=== PATIENT | female | born 1980 | race Caucasian/White ===

== ENCOUNTER 2019-07-21 11:51 | Emergency (ER) | payer MEDICAID ==
[~2019-07-21] VITALS: Ht 157.5 cm; Wt 66.0 kg
[2019-07-21 13:07] VITALS: BP 136/87
--- NOTE | 2019-07-21 14:15 | NUR ---
PT TO CHAIR C
--- NOTE | 2019-07-21 14:20 | NUR ---
DR HAWTHORNE AT CHAIR
[2019-07-21] MEDS ORDERED: IBUPROFEN CHILDRENS 100 MG/5 ML UDC PO ONE (14:25)
[2019-07-21] MEDS ORDERED: DEXAMETHASONE 10 MG/ML VIAL IM ONE (14:25)
--- NOTE | 2019-07-21 14:30 | NUR ---
STREP SWAB COLLECTED
--- NOTE | 2019-07-21 14:39 | NUR ---
MEDICATIONS ADMINISTERED
--- NOTE | 2019-07-21 14:47 | NUR ---
C/O BILTERAL EAR PAIN, SORE THROAT, BODY ACHES, FEVER X 2 DAYS. PAIN 7/10. PT AFEBRILE UPON TRIAGE. DENIES COUGH, CP, SOB, OR N/V/D. LUNGS CLEAR BILATERALLY. PT REPORTS NOT MEDICATING FOR PAIN. VS STABLE, PT ALERT AND AWAKE, AMBULATORY.
--- NOTE | 2019-07-21 14:52 | NUR ---
NADR, PAIN 11/30
--- NOTE | 2019-07-21 16:05 | NUR ---
STREP A POSITIVE, REPORTED TO DR HAWTHORNE
[2019-07-21 16:18] VITALS: BP 128/85
--- NOTE | 2019-07-21 16:18 | NUR ---
Patient discharged with v/s stable. Written and verbal after care instructions given and explained. Patient alert, oriented and verbalized understanding of instructions. Ambulatory with steady gait. All questions addressed prior to discharge. ID band removed. Patient advised to follow up with PMD. Rx of PENICILLIN, NORCO given. Patient educated on indication of medication including possible reaction and side effects. Opportunity to ask questions provided and answered. PT INSTRUCTED TO NOT DRIVE AFTER TAKING NORCO IT MAY CAUSE DROWSINESS
--- NOTE | 2019-07-21 16:19 | NUR ---
PAIN 310, PT STATES RELIEF AFTER MEDICTIONS
== END 2019-07-21 16:18 | disposition home or self-care (01) ==
LOC: MED 11:51
DX: J02.0 Streptococcal pharyngitis (principal); F17.210 Nicotine dependence, cigarettes, uncomplicated; Z98.890 Other specified postprocedural states
CPT/HCPCS: 87081; 96372; 99283; J1100

== ENCOUNTER 2020-11-05 22:39 | Emergency (ER) | payer MEDICAID ==
[~2020-11-05] VITALS: Ht 160 cm; Wt 78.5 kg
[2020-11-05 22:44] VITALS: BP 139/100
[2020-11-05 23:05] VITALS: BP 139/100
[2020-11-06] MEDS ORDERED: PRED20TA6 PO (06:37)
[2020-11-06] MEDS ORDERED: ALBU0.0912 IH (06:37)
== END 2020-11-05 23:05 | disposition left against medical advice (07) ==
LOC: MED 22:39
DX: R05 Cough (principal); Z53.21 Procedure and treatment not carried out due to patient leaving prior to being seen by health care provider

== ENCOUNTER 2020-11-06 06:18 | Emergency (ER) | payer MEDICAID ==
[~2020-11-06] VITALS: Ht 162.6 cm; Wt 78.0 kg
[2020-11-06 06:21] VITALS: BP 152/109
--- NOTE | 2020-11-06 06:23 | NUR ---
To ED bed 09
--- NOTE | 2020-11-06 06:27 | NUR ---
Dr. Paez examining patient.
--- NOTE | 2020-11-06 06:30 | NUR ---
PATIENT PRESENTS TO ED WITH CHIEF COMPLAINT OF COUGH AND BILATERAL FOREARM PAIN. SKIN IS PINK/WARM/DRY; AAOX4 WITH EVEN AND STEADY GAIT; PT DENIES ANY FEVER, CP, SOB, OR COUGH AT THIS TIME; PATIENT STATES PAIN OF 8/10 AT THIS TIME; VSS; PATIENT POSITIONED FOR COMFORT; HOB ELEVATED; BEDRAILS UP X2; BED DOWN. ER MD MADE AWARE OF PT STATUS. PMH: 6 C-SECTIONS, GALLBLADDER REMOVED ALLERGIES: NKA
[2020-11-06] MEDS ORDERED: guaiFENesin/CODEINE 100/10MG 5 ML UDC PO ONE (06:35)
[2020-11-06] MEDS ORDERED: IBUPROFEN 800 MG TAB PO ONE (06:35)
[2020-11-06] MEDS ORDERED: ALBU0.0912 IH (06:37)
[2020-11-06] MEDS ORDERED: PRED20TA6 PO (06:37)
--- NOTE | 2020-11-06 06:39 | NUR ---
SPLINT PUT ON BILATERAL FOREARMS.
[2020-11-06 06:46] VITALS: BP 152/109
--- NOTE | 2020-11-06 06:46 | NUR ---
Patient discharged with v/s stable. Written and verbal after care instructions given and explained. Patient alert, oriented and verbalized understanding of instructions. Ambulatory with steady gait. All questions addressed prior to discharge. ID band removed. Patient advised to follow up with PMD. Rx of ALBUTEROL SULFATE AND PREDNISONE given. Patient educated on indication of medication including possible reaction and side effects. Opportunity to ask questions provided and answered.
== END 2020-11-06 06:46 | disposition home or self-care (01) ==
LOC: MED 06:18
DX: M25.531 Pain in right wrist (principal); M25.532 Pain in left wrist; J20.9 Acute bronchitis, unspecified; Z79.899 Other long term (current) drug therapy
CPT/HCPCS: 99283

== ENCOUNTER 2021-02-08 22:16 | Emergency (ER) | payer MEDICAID ==
[~2021-02-08] VITALS: Ht 162.6 cm; Wt 68.0 kg
[~2021-02-08 22:16] MED LIST: ALBU0.0912 IH; PRED20TA6 PO
[2021-02-08 22:18] VITALS: BP 155/98
--- NOTE | 2021-02-08 22:20 | NUR ---
TO LOBBY A/W BED AMBULATORY
--- NOTE | 2021-02-08 23:00 | NUR ---
TO BED AMBULATORY
[2021-02-08] MEDS ORDERED: ACETAMINOPHEN EXTRA STRENGTH 500 MG TAB PO ONE (23:20)
--- NOTE | 2021-02-08 23:30 | NUR ---
RECEIVED IN BED 9 WITH C/O RIGHT SIDED HEADACHE. HAND NERVE SPECIALIST STRONG AND EQUAL, ANNIE. IS AWAKE AND ALERT, AMBULATES WITH STEADY GAIT
[2021-02-08] MEDS ORDERED: IBUP-2218 PO (23:34)
--- NOTE | 2021-02-09 00:10 | NUR ---
Patient discharged with v/s stable. Written and verbal after care instructions given and explained. Patient verbalized understanding. Ambulatory with steady gait. All questions addressed prior to discharge. Advised to follow up with PMD.
== END 2021-02-09 00:10 | disposition home or self-care (01) ==
LOC: MED 22:16
DX: G43.909 Migraine, unspecified, not intractable, without status migrainosus (principal); M54.2 Cervicalgia; F17.210 Nicotine dependence, cigarettes, uncomplicated; Z98.890 Other specified postprocedural states; Z79.1 Long term (current) use of non-steroidal anti-inflammatories (NSAID); Z79.899 Other long term (current) drug therapy; Z79.51 Long term (current) use of inhaled steroids
CPT/HCPCS: 72050; 99283

== ENCOUNTER 2021-02-15 10:34 | Emergency (ER) | payer MEDICAID ==
[~2021-02-15] VITALS: Ht 162.6 cm; Wt 68.0 kg
[~2021-02-15 10:34] MED LIST changes: +IBUP-2218 PO
[2021-02-15 10:40] VITALS: BP 163/132
--- NOTE | 2021-02-15 10:55 | NUR ---
PATIENT PRESENTS TO ED WITH RIGHT SIDED HEAD PAIN . PT STATES PAIN HAS BEEN ONGOING FOR ONE WEEK . DENIES V/D; SKIN IS PINK/WARM/DRY; AAOX4 WITH EVEN AND STEADY GAIT; LUNGS CLEAR BL; HR EVEN AND REGULAR; PT DENIES ANY FEVER, CP, SOB, OR COUGH AT THIS TIME; PATIENT STATES PAIN OF 8/10 AT THIS TIME; VSS; PATIENT POSITIONED FOR COMFORT; HOB ELEVATED; BEDRAILS UP X2; BED DOWN. ER MD MADE AWARE OF PT STATUS.
[2021-02-15] MEDS: KETOROLAC 60 MG/2 ML VIAL IM ONE (11:08)
[2021-02-15] MEDS ORDERED: CIPR500T4 PO (11:13)
[2021-02-15] MEDS ORDERED: ACET-8386 PO (11:13)
--- NOTE | 2021-02-15 11:58 | NUR ---
PATIENT STATES THAT SHE IS FEELING SLIGHTLY BETTER, PAIN IS 3/10. WOULD LIKE TO LAY IN THE BED A LITTLE WHILE LONGER.
[2021-02-15 12:16] VITALS: BP 163/132
--- NOTE | 2021-02-15 12:17 | NUR ---
Patient discharged with v/s stable. Written and verbal after care instructions given and explained. Patient alert, oriented and verbalized understanding of instructions. Ambulatory with steady gait. All questions addressed prior to discharge. ID band removed. Patient advised to follow up with PMD. Rx of NORCO, CIPRO given. Patient educated on indication of medication including possible reaction and side effects. Opportunity to ask questions provided and answered.
== END 2021-02-15 12:17 | disposition home or self-care (01) ==
LOC: MED 10:34
DX: R51.9 Headache, unspecified (principal); N39.0 Urinary tract infection, site not specified; F17.210 Nicotine dependence, cigarettes, uncomplicated
CPT/HCPCS: 81002; 81025; 87086; 96372; 99283; J1885

== ENCOUNTER 2021-02-17 20:15 | Emergency (ER) | payer MEDICAID ==
[~2021-02-17] VITALS: Ht 162.6 cm; Wt 68.0 kg
[~2021-02-17 20:15] MED LIST changes: +ACET-8386 PO; +CIPR500T4 PO
[2021-02-17 20:30] VITALS: BP 125/85
--- NOTE | 2021-02-17 20:30 | NUR ---
TO BED AMBULATORY
--- NOTE | 2021-02-17 21:19 | NUR ---
40/F FROM TRIAGE WITH A C/O HEAD/NECK PAIN PT REPORTS SIMILAR FEELING OVER THE LAST WEEK AND SEEN AND D/C IN ED YESTERDAY. DENIES INJURY/TRAUMA. ALERT TO NAME BIRTHDAY PLACE AND EVENT.
[2021-02-17] MEDS ORDERED: KETOROLAC 15 MG/ML VIAL IVP ONE (21:20)
[2021-02-17] MEDS ORDERED: BUPIVACAINE-MPF/EPI 0.25% 30 ML VIAL INJ ONE (21:20)
[2021-02-17] MEDS ORDERED: METOCLOPRAMIDE 10 MG/2 ML INJ VIAL IVP ONE (21:20)
--- NOTE | 2021-02-17 22:21 | NUR ---
Patient discharged with v/s stable. Written and verbal after care instructions ABOUT MIGRAINE HEADACHE given and explained. Patient verbalized understanding. Ambulatory with steady gait. All questions addressed prior to discharge. Advised to follow up with PMD.
== END 2021-02-17 22:21 | disposition home or self-care (01) ==
LOC: MED 20:15
DX: G43.909 Migraine, unspecified, not intractable, without status migrainosus (principal); F17.210 Nicotine dependence, cigarettes, uncomplicated; Z90.49 Acquired absence of other specified parts of digestive tract; Z90.710 Acquired absence of both cervix and uterus; Z98.890 Other specified postprocedural states; Z79.891 Long term (current) use of opiate analgesic; Z79.2 Long term (current) use of antibiotics; Z79.51 Long term (current) use of inhaled steroids; Z79.1 Long term (current) use of non-steroidal anti-inflammatories (NSAID); Z79.899 Other long term (current) drug therapy; Z71.6 Tobacco abuse counseling
CPT/HCPCS: 96374; 96375; 99284; J1885; J2765; J3490

== ENCOUNTER 2022-05-01 07:50 | Emergency (ER) | payer MEDICAID ==
[~2022-05-01] VITALS: Ht 162.6 cm; Wt 70.5 kg
[2022-05-01 07:53] VITALS: BP 156/82
--- NOTE | 2022-05-01 08:05 | NUR ---
41/F WALKED IN C/O COUGH, HEADACHE, AND BODYACHE ONSET 2 DAYS. PT ALSO C/O LOW BACK PAIN AND STATES NO BM FOR 2 DAYS. AFEBRILE AT TRIAGE. URINE COLLECTED. COVID AND FLU SWAB COLLECTED AND SENT TO LAB. AAO4, AMBULATORY, VITALS STABLE, NO ACUTE DISTRESS, ON ROOM AIR PMH: MIGRAINE
[2022-05-01] MEDS ORDERED: NACL 0.9% 1,000 ML IV ONE (08:20)
[2022-05-01] MEDS ORDERED: diphenhydrAMINE 50 MG/ML VIAL IVP ONE (08:20)
[2022-05-01] MEDS ORDERED: KETOROLAC 30 MG/ML VIAL IVP ONE (08:20)
[2022-05-01] MEDS ORDERED: ONDANSETRON 4 MG/2 ML VIAL IVP ONE (08:20)
[2022-05-01 08:46] LABS: BASOPHILS % (AUTO) 0.7 % (0.0-2.0); EOSINOPHILS % (AUTO) 0.5 % (0.0-4.0); HEMATOCRIT 40.7 % (36-48); LYMPHOCYTES # (AUTO) 0.9 K/uL (2.5-16.5); LYMPHOCYTES % (AUTO) 15.8 % (20.5-51.1); MEAN CORPUSCULAR HEMOGLOBIN 31 pg (27-31); MEAN CORPUSCULAR HGB CONC 34 g/dL (33-37); MEAN CORPUSCULAR VOLUME 89.4 fL (80-94); MONOCYTES % (AUTO) 17.9 % (1.7-9.3); NEUTROPHILS # (AUTO) 3.8 K/uL (1.8-7.7); NEUTROPHILS % (AUTO) 65.1 % (42.2-75.2); PLATELET COUNT (AUTO) 242 K/uL (140-450); RED BLOOD CELL COUNT(AUTO) 4.55 MIL/uL (4.20-5.40); RED CELL DISTRIBUTION WIDTH 13.7 % (11.6-13.7); WHITE BLOOD COUNT (AUTO) 5.8 K/uL (4.8-10.8)
[2022-05-01 08:55] LABS: BILIRUBIN,URINE NEGATIVE (NEGATIVE); BLOOD, URINE 1+ (NEGATIVE); COLOR,URINE YELLOW (YELLOW); LEUKOCYTE ESTERASE ,URINE TRACE (NEGATIVE); NITRITE, URINE POSITIVE (NEGATIVE); UGLUCOSE NEGATIVE (NEGATIVE)
[2022-05-01 08:56] LABS: ALBUMIN 3.3 g/dL (3.4-5.0); ANION GAP 9.6 (8-16); CARBON DIOXIDE 28.3 mmol/L (21-32); CREATININE 0.7 mg/dL (0.6-1.3); POTASSIUM 3.9 mmol/L (3.5-5.1); TOTAL BILIRUBIN 0.2 mg/dL (0.0-1.0)
[2022-05-01 08:58] LABS: APPEARANCE,URINE SLIGHTLY HAZY (CLEAR)
[2022-05-01 08:59] LABS: RBC,URINE 0-5 /HPF (0-5)
[2022-05-01] MEDS ORDERED: cefTRIAXone 1,000 MG VIAL ONE (09:22)
[2022-05-01] MEDS ORDERED: ONDA-188 PO (09:24)
[2022-05-01] MEDS ORDERED: CIPR500T4 PO (09:24)
[2022-05-01] MEDS ORDERED: IBUP-2213 PO (09:24)
[2022-05-01 10:05] VITALS: BP 135/76
--- NOTE | 2022-05-01 10:05 | NUR ---
Patient discharged with v/s stable. Written and verbal after care instructions given and explained. Patient alert, oriented and verbalized understanding of instructions. Ambulatory with steady gait. All questions addressed prior to discharge. ID band removed. Patient advised to follow up with PMD. Patient educated on indication of medication including possible reaction and side effects. Opportunity to ask questions provided and answered.
== END 2022-05-01 10:05 | disposition home or self-care (01) ==
LOC: MED 07:50
DX: N12 Tubulo-interstitial nephritis, not specified as acute or chronic (principal); Z20.822 Contact with and (suspected) exposure to COVID-19
CPT/HCPCS: 36415; 80053; 81001; 81025; 85025; 87086; 87426; 87804; 96361; 96365; 96375; 99284; J0696; J1200; J1885; J2405; J7030

== ENCOUNTER 2022-08-19 17:07 | Emergency (ER) | payer MEDICAID ==
[~2022-08-19] VITALS: Ht 162.6 cm; Wt 72.1 kg
[~2022-08-19 17:07] MED LIST changes: -ACET-8386 PO; +ACET-8905 PO; +IBUP-2213 PO; +ONDA-188 PO
[2022-08-19 17:19] VITALS: BP 141/96
--- NOTE | 2022-08-19 17:24 | NUR ---
Patient ambulated to bed 04 with steady/even gait
[2022-08-19 17:25] VITALS: BP 141/96
--- NOTE | 2022-08-19 17:34 | NUR ---
41 y/o F BIB self from home c/o vaginal bleeding since this morning. Patient A&Ox4, ambulatory, states (+) at-home test 1 week ago. Reports vaginal spotting with wiping; pink/clear. States "woke up with low pelvic pain that went away." Denies abdominal pain, vomiting, diarrhea, constipation, vaginal bleeding, vaginal discharge, dysuria, urinary symptoms, fever. [id number]. LMP: 07/17/22. Bed locked in lowest position, side rails x 1. PMH/Sx/Meds: 6 C-sections, cholecystectomy NKDA
[2022-08-19 17:54] LABS: APPEARANCE,URINE CLEAR (CLEAR); BILIRUBIN,URINE NEGATIVE (NEGATIVE); BLOOD, URINE 3+ (NEGATIVE); COLOR,URINE YELLOW (YELLOW); LEUKOCYTE ESTERASE ,URINE 1+ (NEGATIVE); NITRITE, URINE POSITIVE (NEGATIVE); UGLUCOSE NEGATIVE (NEGATIVE)
[2022-08-19 18:20] LABS: RBC,URINE 11-20 (MOD) /HPF (0-5)
[2022-08-19 19:11] LABS: BASOPHILS % (AUTO) 0.5 % (0.0-2.0); EOSINOPHILS # (AUTO) 0.1 K/uL (0-0.4); EOSINOPHILS % (AUTO) 1.4 % (0.0-4.0); HEMATOCRIT 37.5 % (36-48); HEMOGLOBIN 12.9 g/dL (12.0-16.0); LYMPHOCYTES # (AUTO) 1.9 K/uL (2.5-16.5); LYMPHOCYTES % (AUTO) 19.4 % (20.5-51.1); MEAN CORPUSCULAR HEMOGLOBIN 30 pg (27-31); MEAN CORPUSCULAR HGB CONC 34 g/dL (33-37); MEAN CORPUSCULAR VOLUME 86.5 fL (80-94); MONOCYTES # (AUTO) 1.1 K/uL (0.8-1.0); MONOCYTES % (AUTO) 11.3 % (1.7-9.3); NEUTROPHILS # (AUTO) 6.8 K/uL (1.8-7.7); NEUTROPHILS % (AUTO) 67.4 % (42.2-75.2); PLATELET COUNT (AUTO) 389 K/uL (140-450); RED BLOOD CELL COUNT(AUTO) 4.34 MIL/uL (4.20-5.40); RED CELL DISTRIBUTION WIDTH 13.5 % (11.6-13.7)
--- NOTE | 2022-08-19 19:17 | NUR ---
Report and transfer of care endorsed to CATE Caban.
[2022-08-19] MEDS ORDERED: ACET-2214 PO (19:30)
[2022-08-19] MEDS ORDERED: CEPH-588 PO (19:30)
--- NOTE | 2022-08-19 19:45 | NUR ---
Patient discharged with v/s stable. Written and verbal after care instructions given and explained. Patient alert, oriented and verbalized understanding of instructions. Ambulatory with steady gait. All questions addressed prior to discharge. ID band removed. Patient advised to follow up with PMD. Rx of KEFLEX AND TYLENOL given. Patient educated on indication of medication including possible reaction and side effects. Opportunity to ask questions provided and answered.
== END 2022-08-19 19:45 | disposition home or self-care (01) ==
LOC: MED 17:07
DX: O20.0 Threatened abortion (principal); O23.41 Unspecified infection of urinary tract in pregnancy, first trimester; N39.0 Urinary tract infection, site not specified; Z3A.11 11 weeks gestation of pregnancy; Z79.899 Other long term (current) drug therapy
CPT/HCPCS: 36415; 76817; 81001; 81025; 84702; 85025; 86900; 86901; 87086; 99284; Q0092

== ENCOUNTER 2022-09-24 14:56 | Emergency (ER) | payer MEDICAID ==
[~2022-09-24] VITALS: Ht 162.6 cm; Wt 70.8 kg
[~2022-09-24 14:56] MED LIST changes: +ACET-2214 PO; +CEPH-588 PO
[2022-09-24 15:01] VITALS: BP 151/103
[2022-09-24] MEDS ORDERED: guaiFENesin/CODEINE 100/10MG 5 ML UDC PO ONE (15:40)
[2022-09-24] MEDS ORDERED: IPRATROPIUM 0.02% 0.5 MG/2.5 ML NEBU INH ONE (17:15)
[2022-09-24] MEDS ORDERED: ALBUTEROL 0.083% 2.5 MG/3 ML NEBU INH ONE (17:15)
[2022-09-24 17:25] LABS: APPEARANCE,URINE CLEAR (CLEAR); BILIRUBIN,URINE NEGATIVE (NEGATIVE); BLOOD, URINE NEGATIVE (NEGATIVE); COLOR,URINE YELLOW (YELLOW); LEUKOCYTE ESTERASE ,URINE NEGATIVE (NEGATIVE); NITRITE, URINE POSITIVE (NEGATIVE); PH,URINE 5.5 (5.0-9.0); UGLUCOSE NEGATIVE (NEGATIVE)
[2022-09-24] MEDS ORDERED: GUAI118L81 PO (17:49)
[2022-09-24] MEDS ORDERED: CEPH-588 PO (17:50)
== END 2022-09-24 18:45 | disposition home or self-care (01) ==
LOC: MED 14:56
DX: R05.9 Cough, unspecified (principal); N39.0 Urinary tract infection, site not specified; F17.210 Nicotine dependence, cigarettes, uncomplicated; Z79.899 Other long term (current) drug therapy
CPT/HCPCS: 71045; 81003; 81025; 99284; J7613; J7644; Q0092

== ENCOUNTER 2023-01-03 19:28 | Emergency (ER) | payer MEDICAID, OTHER ==
[~2023-01-03] VITALS: Ht 165.1 cm; Wt 74.8 kg
[~2023-01-03 19:28] MED LIST changes: +GUAI118L81 PO
[2023-01-03] MEDS ORDERED: DOPPLER MC ONE (19:34)
--- NOTE | 2023-01-03 19:49 | NUR ---
TO LOBBY FOLLOWING TRIAGE, AFTER OBTAINING UA. UNABLE TO LOCATE FHT WHILE IN TRIAGE.
--- NOTE | 2023-01-03 20:01 | NUR ---
URINE TAKEN TO LAB.
[2023-01-03 20:27] LABS: BILIRUBIN,URINE NEGATIVE (NEGATIVE); BLOOD, URINE NEGATIVE (NEGATIVE); COLOR,URINE YELLOW (YELLOW); LEUKOCYTE ESTERASE ,URINE 2+ (NEGATIVE); NITRITE, URINE POSITIVE (NEGATIVE); UGLUCOSE NEGATIVE (NEGATIVE)
[2023-01-03 20:29] LABS: APPEARANCE,URINE HAZY (CLEAR)
[2023-01-03 21:01] LABS: BASOPHILS # (AUTO) 0.1 K/uL (0.00-0.22); BASOPHILS % (AUTO) 0.4 % (0.0-2.0); EOSINOPHILS # (AUTO) 0.3 K/uL (0-0.4); EOSINOPHILS % (AUTO) 2.7 % (0.0-4.0); HEMATOCRIT 40.3 % (36-48); HEMOGLOBIN 13.7 g/dL (12.0-16.0); LYMPHOCYTES # (AUTO) 2.2 K/uL (2.5-16.5); LYMPHOCYTES % (AUTO) 17.5 % (20.5-51.1); MEAN CORPUSCULAR HEMOGLOBIN 30 pg (27-31); MEAN CORPUSCULAR HGB CONC 34 g/dL (33-37); MEAN CORPUSCULAR VOLUME 88.2 fL (80-94); MONOCYTES # (AUTO) 1.2 K/uL (0.8-1.0); MONOCYTES % (AUTO) 9.8 % (1.7-9.3); NEUTROPHILS # (AUTO) 8.7 K/uL (1.8-7.7); NEUTROPHILS % (AUTO) 69.6 % (42.2-75.2); PLATELET COUNT (AUTO) 281 K/uL (140-450); RED BLOOD CELL COUNT(AUTO) 4.57 MIL/uL (4.20-5.40); RED CELL DISTRIBUTION WIDTH 14.7 % (11.6-13.7); WHITE BLOOD COUNT (AUTO) 12.5 K/uL (4.8-10.8)
[2023-01-03 21:26] LABS: RBC,URINE NONE SEEN /HPF (0-5)
[2023-01-03 21:30] VITALS: BP 124/68; PULSE 88; RESP 16; TEMP 97.4; O2SAT 100
--- NOTE | 2023-01-03 21:55 | NUR ---
PT AMBULATED TO THE BATHROOM FOR URINE COLLECTION
[2023-01-03] MEDS ORDERED: cephALEXin 500 MG CAP PO ONE (22:10)
--- NOTE | 2023-01-03 22:15 | NUR ---
AGUSTIND examining patient.
[2023-01-03 22:25] VITALS: TEMP 97.4
--- NOTE | 2023-01-03 22:34 | NUR ---
Patient is a 42/F, 11 weeks AOG by LMP, who came in due to pelvic pain, intermittent, 12/30, aggravated by coughing around 2 hours prior to ED consult associated with nausea. No fever/chills, cough/colds, vomiting/diarrhea noted. LMP: October 10, 2022 PMHx: Lorrie WHALEY
[2023-01-03] MEDS ORDERED: CEPH-588 PO (22:44)
[2023-01-03] MEDS ORDERED: DOXY1TCP PO (22:45)
[2023-01-03 22:50] VITALS: BP 151/89; PULSE 85; RESP 12; O2SAT 99
--- NOTE | 2023-01-03 22:50 | NUR ---
Patient discharged. Written and verbal after care instructions given and explained. Patient alert, oriented and verbalized understanding of instructions. Ambulatory with steady gait. All questions addressed prior to discharge. ID band removed. Patient advised to follow up with PMD. Rx of Keflex & Diclegis given. Patient educated on indication of medication including possible reaction and side effects. Opportunity to ask questions provided and answered.
== END 2023-01-03 22:50 | disposition home or self-care (01) ==
LOC: MED 19:28
DX: O26.891 Other specified pregnancy related conditions, first trimester (principal); O23.41 Unspecified infection of urinary tract in pregnancy, first trimester; Z3A.11 11 weeks gestation of pregnancy; Z79.899 Other long term (current) drug therapy
CPT/HCPCS: 36415; 76817; 81001; 81025; 84702; 85025; 86900; 86901; 87086; 99284; Q0092

== ENCOUNTER 2023-01-06 11:18 | Emergency (ER) | payer OTHER ==
[~2023-01-06] VITALS: Ht 162.6 cm; Wt 75.7 kg
[~2023-01-06 11:18] MED LIST changes: +DOXY1TCP PO
[2023-01-06 11:39] VITALS: BP 150/91; PULSE 97; RESP 18; TEMP 96.3; O2SAT 99
[2023-01-06 12:22] LABS: BASOPHILS % (AUTO) 0.3 % (0.0-2.0); EOSINOPHILS # (AUTO) 0.1 K/uL (0-0.4); EOSINOPHILS % (AUTO) 1.1 % (0.0-4.0); HEMATOCRIT 39.8 % (36-48); HEMOGLOBIN 13.6 g/dL (12.0-16.0); LYMPHOCYTES # (AUTO) 1.4 K/uL (2.5-16.5); LYMPHOCYTES % (AUTO) 11.1 % (20.5-51.1); MEAN CORPUSCULAR HEMOGLOBIN 30 pg (27-31); MEAN CORPUSCULAR HGB CONC 34 g/dL (33-37); MEAN CORPUSCULAR VOLUME 87.2 fL (80-94); MONOCYTES # (AUTO) 0.9 K/uL (0.8-1.0); MONOCYTES % (AUTO) 7.2 % (1.7-9.3); NEUTROPHILS # (AUTO) 10.2 K/uL (1.8-7.7); NEUTROPHILS % (AUTO) 80.3 % (42.2-75.2); PLATELET COUNT (AUTO) 274 K/uL (140-450); RED BLOOD CELL COUNT(AUTO) 4.57 MIL/uL (4.20-5.40); RED CELL DISTRIBUTION WIDTH 14.4 % (11.6-13.7); WHITE BLOOD COUNT (AUTO) 12.7 K/uL (4.8-10.8)
--- NOTE | 2023-01-06 13:30 | NUR ---
CALLED NO ANSWER
--- NOTE | 2023-01-06 14:38 | NUR ---
PATIENT LWBST [id number]
--- NOTE | 2023-01-06 14:51 | NUR ---
CALLED NO ANSWER
== END 2023-01-06 14:30 | disposition left against medical advice (07) ==
LOC: MED 11:18
DX: N93.9 Abnormal uterine and vaginal bleeding, unspecified (principal); Z53.21 Procedure and treatment not carried out due to patient leaving prior to being seen by health care provider
CPT/HCPCS: 36415; 81002; 81025; 84702; 85025; 99281

== ENCOUNTER 2023-06-29 15:12 | Emergency (ER) | payer MEDICAID, OTHER ==
[~2023-06-29] VITALS: Ht 162.6 cm; Wt 94.8 kg
[2023-06-29 15:30] VITALS: BP 160/100; PULSE 77; RESP 20; TEMP 96.8; O2SAT 99
[2023-06-29 16:30] LABS: BASOPHILS # (AUTO) 0.1 K/uL (0.00-0.22); BASOPHILS % (AUTO) 0.4 % (0.0-2.0); EOSINOPHILS % (AUTO) 7.4 % (0.0-4.0); LYMPHOCYTES % (AUTO) 14.7 % (20.5-51.1); MEAN CORPUSCULAR HEMOGLOBIN 29 pg (27-31); MEAN CORPUSCULAR HGB CONC 33 g/dL (33-37); MEAN CORPUSCULAR VOLUME 86.7 fL (80-94); MONOCYTES # (AUTO) 1.1 K/uL (0.8-1.0); MONOCYTES % (AUTO) 8.4 % (1.7-9.3); NEUTROPHILS # (AUTO) 9.4 K/uL (1.8-7.7); NEUTROPHILS % (AUTO) 69.1 % (42.2-75.2); PLATELET COUNT (AUTO) 473 K/uL (140-450); RED BLOOD CELL COUNT(AUTO) 3.81 MIL/uL (4.20-5.40); RED CELL DISTRIBUTION WIDTH 15.5 % (11.6-13.7); WHITE BLOOD COUNT (AUTO) 13.5 K/uL (4.8-10.8)
[2023-06-29 16:38] LABS: APPEARANCE,URINE CLOUDY (CLEAR); BILIRUBIN,URINE NEGATIVE (NEGATIVE); BLOOD, URINE 3+ (NEGATIVE); COLOR,URINE YELLOW (YELLOW); LEUKOCYTE ESTERASE ,URINE 1+ (NEGATIVE); NITRITE, URINE POSITIVE (NEGATIVE); PROTEIN,URINE TRACE (NEGATIVE); UGLUCOSE NEGATIVE (NEGATIVE); UROBILINOGEN,URINE 0.2 EU/dL (0.2 - 1)
[2023-06-29 16:41] LABS: ANION GAP 14.5 (8-16); CALCIUM 9.3 mg/dL (8.5-10.1); CARBON DIOXIDE 25.5 mmol/L (21-32); CREATININE 0.7 mg/dL (0.6-1.3)
[2023-06-29 16:47] LABS: ALBUMIN 2.5 g/dL (3.4-5.0); BILIRUBIN,DIRECT 0.1 mg/dL (0.0-0.3); TOTAL BILIRUBIN 0.2 mg/dL (0.0-1.0); TOTAL PROTEIN, SERUM 6.7 g/dL (6.4-8.2)
[2023-06-29 16:53] LABS: BACTERIA,URINE 3+ /HPF (None Seen); MUCUS,URINE 1+ /LPF (None Seen); RBC,URINE 50-80 /HPF (0-5); SQUAMOUS EPITHELIAL CELL,UR 80-100 /LPF (0-3 (FEW)); TRICHOMONAS,URINE None Seen /HPF (None Seen); YEAST,URINE None Seen /HPF (None Seen)
[2023-06-29] MEDS ORDERED: TRA200 PO (17:44)
[2023-06-29 17:57] VITALS: BP 136/76; PULSE 75; RESP 17
[2023-06-29 19:08] VITALS: O2SAT 99
== END 2023-06-29 17:59 | disposition home or self-care (01) ==
LOC: MED 15:12
DX: I10 Essential (primary) hypertension (principal); Z79.899 Other long term (current) drug therapy
CPT/HCPCS: 36415; 80048; 80076; 81001; 83690; 85025; 87086; 99283